=== PATIENT | male | born 1955 ===

== ENCOUNTER 2018-03-08 02:08 | Outpatient (CLI) | payer BC | END 2018-03-08 23:59 | disposition home or self-care (01) | LOC: DIABETIC 02:08 | PROVIDERS: ATTEND Family Medicine | DX: R73.03 Prediabetes (principal) | CPT/HCPCS: G0108 ==

== ENCOUNTER 2018-04-26 02:22 | Outpatient (CLI) | payer BC | END 2018-04-26 23:59 | disposition home or self-care (01) | LOC: DIABETIC 02:22 | PROVIDERS: ATTEND Family Medicine | DX: R73.03 Prediabetes (principal); Z88.5 Allergy status to narcotic agent | CPT/HCPCS: G0108 ==

== ENCOUNTER 2018-06-07 00:38 | Outpatient (CLI) | payer BC | END 2018-06-07 23:59 | disposition home or self-care (01) | LOC: DIABETIC 00:38 | PROVIDERS: ATTEND Family Medicine | DX: R73.03 Prediabetes (principal); Z88.5 Allergy status to narcotic agent | CPT/HCPCS: G0108 ==

== ENCOUNTER 2018-10-04 02:46 | Outpatient (CLI) | payer BC | END 2018-10-04 23:59 | disposition home or self-care (01) | LOC: DIABETIC 02:46 | PROVIDERS: ATTEND Family Medicine | DX: R73.03 Prediabetes (principal); Z88.5 Allergy status to narcotic agent | CPT/HCPCS: G0108 ==

== ENCOUNTER 2018-12-27 02:10 | Outpatient (CLI) | payer BC | END 2018-12-27 23:59 | disposition home or self-care (01) | LOC: DIABETIC 02:10 | PROVIDERS: ATTEND Family Medicine | DX: R73.03 Prediabetes (principal); Z88.5 Allergy status to narcotic agent | CPT/HCPCS: G0108 ==

== ENCOUNTER 2019-04-04 02:53 | Outpatient (CLI) | payer BC | END 2019-04-04 23:59 | disposition home or self-care (01) | LOC: DIABETIC 02:53 | PROVIDERS: ATTEND Family Medicine | DX: R73.03 Prediabetes (principal); Z88.5 Allergy status to narcotic agent | CPT/HCPCS: G0108 ==

== ENCOUNTER 2019-07-11 03:44 | Outpatient (CLI) | payer BC | END 2019-07-11 23:59 | disposition home or self-care (01) | LOC: DIABETIC 03:44 | PROVIDERS: ATTEND Family Medicine | DX: R73.03 Prediabetes (principal); Z88.5 Allergy status to narcotic agent | CPT/HCPCS: G0108 ==